=== PATIENT | female | born 1940 | race African-American/Black ===

== ENCOUNTER → 2022-04-27 | Outpatient (CLI) | payer MEDICARE, OTHER | END | disposition home or self-care (01) | LOC: RADPV 11:10 | PROVIDERS: ATTEND Internal Medicine | DX: M81.0 Age-related osteoporosis without current pathological fracture (principal); M85.88 Other specified disorders of bone density and structure, other site | CPT/HCPCS: 77080 ==

== ENCOUNTER → 2022-11-08 | Outpatient (CLI) | payer MEDICARE, OTHER | END | disposition home or self-care (01) | LOC: RADMN 10:57 | PROVIDERS: ATTEND Student in an Organized Health Care Education/Training Program | DX: G30.9 Alzheimer's disease, unspecified (principal); G31.9 Degenerative disease of nervous system, unspecified; F02.A0 Dementia in other diseases classified elsewhere, mild, without behavioral disturbance, psychotic disturbance, mood disturbance, and anxiety | CPT/HCPCS: 70551 ==

== ENCOUNTER 2024-01-01 17:36 | Emergency (ER) | payer MEDICARE, OTHER ==
[~2024-01-01] VITALS: Ht 172.7 cm; Wt 80.0 kg
[2024-01-01 18:51] VITALS: TEMP 99
[2024-01-01] MEDS ORDERED: DONE-52 PO (19:04)
[2024-01-01] MEDS ORDERED: CHOL25TA4 PO (19:04)
[2024-01-01] MEDS ORDERED: TELM80TA10 PO (19:04)
[2024-01-01] MEDS ORDERED: ATOR40TA71 PO (19:04)
[2024-01-01] MEDS ORDERED: ASPI-1444 PO (19:04)
[2024-01-01] MEDS ORDERED: AMLO2.5T29 PO (19:04)
[2024-01-01] MEDS: ACETAMINOPHEN 500 MG TABLET PO ONE (19:31)
[2024-01-01 21:46] VITALS: BP 125/71; PULSE 83; RESP 16
== END 2024-01-01 22:14 | disposition home or self-care (01) ==
LOC: EMS 17:36
DX: S93.401A Sprain of unspecified ligament of right ankle, initial encounter (principal); W19.XXXA Unspecified fall, initial encounter; Y93.89 Activity, other specified; Y92.89 Other specified places as the place of occurrence of the external cause; Y99.8 Other external cause status
CPT/HCPCS: 99283